=== PATIENT | female | born 1935 | race Caucasian/White ===

== ENCOUNTER 2018-11-24 19:59 | Inpatient (IN) | payer MEDICAID, OTHER ==
[~2018-11-24] VITALS: Ht 152.4 cm; Wt 90.0 kg
[~2018-11-24 19:59] MED LIST: ASPI-817 PO; DILT240C85 PO; FURO20TA3 PO; LEVO750T8 PO; METF-849 PO; RIVA10TA PO
--- NOTE | 2018-11-24 21:18 | ERD ---
ER Documentation Chief Complaint Chief Complaint SOB, CHEST PAIN AND AFIB JUST DISCHARGED 2 DAYS AGO FROM [facility] HPI 83-year-old female history of cardiac issues with unclear etiology. Unknown medications patient is unable to tell us which medication she takes. Patient is endorsing shortness of breath and bilateral lower extremity edema. Denies any chest pain, abdominal pain, nausea or vomiting. Denies any infectious symptoms. Per grandson patient was recently admitted at outside hospital multiple times once for hypervolemia and once for an infection. ROS All systems reviewed and are negative except as per history of present illness. PMhx/Soc Medical and Surgical Hx: pt denies Surgical Hx Hx Cardiac Disorders: Yes Physical Exam Vitals Vital Signs Date Temp Pulse Resp B/P (MAP) Pulse Ox O2 O2 Flow FiO2 Time Delivery Rate 11/24/18 98.5 120 22 125/77 95 Room Air 20:50 (93) 11/24/18 98.5 76 22 125/77 95 20:03 (93) Physical Exam Const: No acute distress Head: Atraumatic Eyes: Normal Conjunctiva ENT: Normal External Ears, Nose and Mouth. Neck: Full range of motion. No meningismus. Resp: Clear to auscultation bilaterally Cardio: Irregular rate and rhythm, no murmurs Abd: Soft, non tender, non distended. Normal bowel sounds Skin: No petechiae or rashes Back: No midline or flank tenderness Ext: No cyanosis, or bilateral lower extremity edema Neur: Awake and alert Psych: Normal Mood and Affect Result Diagram: 11/24/18210911/24/182109 Results 24 hrs Laboratory Tests Test 11/24/18 21:10 11/24/18 23:15 White Blood Count 18.3 10^3/ul Red Blood Count 4.25 10^6/ul Hemoglobin 12.1 g/dl Hematocrit 38.2 % Mean Corpuscular Volume 89.9 fl Mean Corpuscular Hemoglobin 28.5 pg Mean Corpuscular Hemoglobin Concent 31.7 g/dl Red Cell Distribution Width 16.0 % Platelet Count 155 10^3/UL Mean Platelet Volume 11.3 fl Immature Granulocytes % 6.700 % Neutrophils % % Segmented Neutrophils % (Manual) 92 % Lymphocytes % % Lymphocytes % (Manual) 3 % Monocytes % % Monocytes % (Manual) 3 % Eosinophils % % Basophils % % Metamyelocytes % (manual) 2 % Nucleated Red Blood Cells % 0.1 /100WBC Immature Granulocytes # 1.230 10^3/ul Neutrophils # 10^3/ul Lymphocytes (Manual) 0.5 10^3/ul Lymphocytes # 10^3/ul Monocytes # 10^3/ul Monocytes # (Manual) 0.5 10^3/ul Eosinophils # 10^3/ul Basophils # 10^3/ul Metamyelocytes # 0.3 10^3/ul Nucleated Red Blood Cells # 10^3/ul Platelet Estimate NORMAL Sodium Level 141 mmol/L Potassium Level 4.1 mmol/L Chloride Level 106 mmol/L Carbon Dioxide Level 25 mmol/L Anion Gap 10 Blood Urea Nitrogen 56 mg/dl Creatinine 1.57 mg/dl Est Glomerular Filtrat Rate mL/min mL/min Glucose Level 427 mg/dl Bedside Glucose 383 mg/dL Calcium Level 10.9 mg/dl Troponin I 0.063 ng/ml B-Type Natriuretic Peptide 8710 PG/ML Bedside Urine pH (LAB) 5.0 Bedside Urine Protein (LAB) Negative Bedside Urine Glucose (UA) 0.50% Bedside Urine Ketones (LAB) Negative Bedside Urine Blood 1+ Bedside Urine Nitrite (LAB) Negative Bedside Urine Leukocyte Esterase (L 1+ Current Medications Medications Dose Sig/Gail Start Time Status Last (Trade) Ordered Route PRN Stop Time Admin Dose Reason Admin Ceftriaxone 1 gm ONCE ONCE 11/24/18 DC Sodium IM 23:30 11/24/18 (Rocephin) 23:31 Procedures/MDM ECG Time: 2006 Ventricular Rate: 130 Rhythm: atrial fibrillation no ST elevations QRS narrow Patient presenting with worsening shortness of breath over the past few weeks with constellation of symptoms concerning for possible CHF exacerbation. Patient not overtly hypoxic with minimal respiratory distress No overt evidence of acute ischemia on EKG patient is in A. fib heart rate 1 10- 1 20 We will give IV Lasix pressure stable Trend troponin although low suspicion for acute ischemia given history and exam Low suspicion for acute PE given exam and history. Given decline in functional status, consider admission for diuresis and further cardiac evaluation MARCO A KEANE MD Nov 24, 2018 21:18
[2018-11-24] MEDS ORDERED: CEFTRIAXONE 1 GM INJ IM ONE (23:30)
[2018-11-25] VITALS (7 sets, daily range): BP systolic 107–142; BP diastolic 58–72; PULSE 88–99; RESP 17–20; Ht 152.4 cm; Wt 90.0 kg
[2018-11-25] MEDS ORDERED: FUROSEMIDE 40 MG INJ IV ONE (00:30)
[2018-11-25] MEDS ORDERED: ONDANSETRON 4 MG INJ IV PRN ×2 (01:00→04:00)
[2018-11-25] MEDS ORDERED: ACETAMINOPHEN 325 MG TAB PO PRN (04:00)
[2018-11-25] MEDS ORDERED: NACL 0.9% 3 ML SYG IV SCH (04:00)
[2018-11-25] MEDS ORDERED: INSULIN GLARGINE [LANTus] (100 UNITS/ML) SYG SC ONE (04:00)
[2018-11-25] MEDS ORDERED: NITROGLYCERIN (SL) 0.4 MG TAB SL PRN (04:00)
[2018-11-25] MEDS ORDERED: DEXTROSE 50% 50 ML SYRINGE IV PRN ×2 (04:30)
[2018-11-25] MEDS ORDERED: GLUCAGON 1 MG INJ IM PRN (04:30)
[2018-11-25] MEDS ORDERED: GLUCOSE GEL 15 GRAM TUBE PO PRN ×2 (04:30)
[2018-11-25] MEDS ORDERED: GLUCOSE GEL 15 GRAM TUBE BUCCAL PRN (04:30)
[2018-11-25] MEDS: FUROSEMIDE 20 MG TAB PO SCH ×2 (05:30→17:19)
[2018-11-25] MEDS: ACETAMINOPHEN 325 MG TAB PO PRN ×2 (05:30→20:10)
[2018-11-25] MEDS: INSULIN ASPART [NOVOLOG] 3 ML PEN SC SCH ×7 (07:49→20:10)
--- NOTE | 2018-11-25 07:49 | HP ---
Date/Time of Note Date/Time of Note DATE: 11/25/18 TIME: 07:44 Assessment/Plan VTE Prophylaxis Pharmacological prophylaxis: rivaroxaban Lines/Catheters IV Catheter Type (from Nrsg): Peripheral IV Assessment/Plan Assessment/Plan 1. Atrial fibrillation with RVR; ?Hyperthyroidism -Continue home diltiazem -Add medication including IV meds as needed -Continue Xarelto -2D echo cardiology consult -TSH low, f/u freeT4 2. Type 2 diabetes with hyperglycemia: No DKA -Insulin while in-house -Check A1c 3. CHF exacerbation, either systolic or diastolic -Continue Lasix -Follow-up 2D echo result 4. SIRS with possible sepsis, possibly from lower extremity cellulitis and UTI -IV antibiotic -Follow culture results 5. Hyperthyroidism -TSH low, f/u freeT4 6. Presumed acute on CKD -Urine electrolytes -Renal ultrasound and nephrology consult as needed Result Diagram: 11/25/1822811/25/189 Results 24hrs Laboratory Tests Test 11/24/18 21:10 11/24/18 23:15 11/25/18 02:29 11/25/18 02:35 White Blood Count 18.3 H 16.1 H Red Blood Count 4.25 4.22 Hemoglobin 12.1 12.1 Hematocrit 38.2 37.5 Mean Corpuscular Volume 89.9 88.9 Mean Corpuscular 28.5 L 28.7 L Hemoglobin Mean Corpuscular 31.7 L 32.3 Hemoglobin Concent Red Cell Distribution 16.0 H 15.9 H Width Platelet Count 155 151 Mean Platelet Volume 11.3 H 11.8 H Immature Granulocytes % 6.700 H 7.600 H Neutrophils % Segmented Neutrophils 92 H % (Manual) Lymphocytes % Lymphocytes % (Manual) 3 L Monocytes % Monocytes % (Manual) 3 Eosinophils % Basophils % Metamyelocytes % 2 H (manual) Nucleated Red Blood 0.1 H 0.0 Cells % Immature Granulocytes # 1.230 H 1.220 H Neutrophils # Lymphocytes (Manual) 0.5 L Lymphocytes # Monocytes # Monocytes # (Manual) 0.5 Eosinophils # Basophils # Metamyelocytes # 0.3 H Nucleated Red Blood Cells # Platelet Estimate NORMAL Sodium Level 141 141 Potassium Level 4.1 3.8 Chloride Level 106 106 Carbon Dioxide Level 25 26 Anion Gap 10 9 Blood Urea Nitrogen 56 H 54 H Creatinine 1.57 H 1.41 H Est Glomerular Filtrat Rate mL/min Glucose Level 427 *H 391 H Bedside Glucose 383 H Calcium Level 10.9 H 11.2 H Troponin I 0.063 0.072 B-Type Natriuretic 8710 H Peptide Bedside Urine pH (LAB) 5.0 Bedside Urine Protein Negative (LAB) Bedside Urine Glucose 0.50% H (UA) Bedside Urine Ketones Negative (LAB) Bedside Urine Blood 1+ H Bedside Urine Nitrite Negative (LAB) Bedside Urine 1+ H Leukocyte Esterase (L Magnesium Level 1.7 Total Bilirubin 0.3 Direct Bilirubin 0.00 Indirect Bilirubin 0.3 Aspartate Amino 26 Transf (AST/SGOT) Alanine 55 Aminotransferase (ALT/SG PT) Alkaline Phosphatase 84 Total Protein 5.8 L Albumin 3.2 L Globulin 2.60 Albumin/Globulin Ratio 1.23 Triglycerides Level 253 H Cholesterol Level 175 LDL Cholesterol, 77 Calculated HDL Cholesterol 47 Cholesterol/HDL Ratio 3.7 Thyroid Stimulating 0.376 L Hormone (TSH) Creatine Kinase 22 L Creatine Kinase Index 16.3 Creatinine Kinase MB 3.58 H (Mass) Test 11/25/18 05:16 Urine Color COLORLESS Urine Clarity CLEAR Urine pH 5.0 Urine Specific Brandon 1.006 Urine Ketones NEGATIVE Urine Nitrite NEGATIVE Urine Bilirubin NEGATIVE Urine Urobilinogen NEGATIVE Urine Leukocyte Esterase TRACE A Urine Microscopic RBC 1 Urine Microscopic WBC 6 H Urine Hemoglobin NEGATIVE Urine Glucose 3+ H Urine Total Protein NEGATIVE HPI/ROS Admit Date/Time Admit Date/Time Nov 25, 2018 at 00:34 Hx of Present Illness Patient is an 83-year-old female with a history of type 2 diabetes, atrial fibrillation, CHF who presents the ER complaining of shortness of breath, lower extremity edema and palpitations. There is also redness in bilateral lower extremity. Patient was recently hospitalized at [facility] and there was just discharged 2 days ago per ER. It seems like she was hospitalized for chest pain. Patient was found to be in rapid A-fib. Lab shows glucose of 427, creatinine 1.57, WBC 18,000, BNP almost 9000. PMH/Family/Social Past Medical History Medical History: other (See HPI) Medications Current Medications Ondansetron HCl (Zofran Inj) 4 mg ER BRIDGE PRN IV NAUSEA/VOMITING; Start 11/25/18 at 01:00; Stop 11/26/18 at 00:59 Acetaminophen (Tylenol Tab) 650 mg ER BRIDGE PRN PO .MILD PAIN 1-3 OR TEMP Last administered on 11/25/18at 05:30; Admin Dose 650 MG; Start 11/25/18 at 01:00; Stop 11/26/18 at 00:59 IV Flush (NS 3 ml) 3 ml PER PROTOCOL IV ; Start 11/25/18 at 04:00 Ondansetron HCl (Zofran Inj) 4 mg Q6H PRN IV NAUSEA/VOMITING; Start 11/25/18 at 04:00 Nitroglycerin (Nitroglycerin (Sl Tab) 0.4 Mg) 1 tab Q5M PRN SL .CHEST PAIN; Start 11/25/18 at 04:00 Acetaminophen (Tylenol Tab) 650 mg Q6H PRN PO .PAIN 1-3 OR TEMP; Start 11/25/18 at 04:00 Diagnostic Test (Pha) (Accu-Chek) 1 ea 02 XX ; Start 11/26/18 at 02:00 Insulin Glargine (Lantus) 14 units DAILY@2000 SC ; Start 11/25/18 at 20:00 Insulin Aspart (Novolog Insulin Pen) 6 unit WITH MEALS SC ; Start 11/25/18 at 08:00 Insulin Aspart (Novolog Insulin Pen) NOVOLOG *MODERATE* ALGORITHM WITH MEALS BEDTIME SC ; Start 11/25/18 at 08:00 Aspirin (Halfprin) 81 mg DAILY PO ; Start 11/25/18 at 09:00 Diltiazem HCl (Cardizem Cd) 240 mg QAM PO ; Start 11/25/18 at 09:00 Furosemide (Lasix) 20 mg BID DIURETICS PO Last administered on 11/25/18at 05:30; Admin Dose 20 MG; Start 11/25/18 at 06:00 Metformin HCl (Glucophage) 500 mg BID PO ; Start 11/25/18 at 09:00 Rivaroxaban (Xarelto) 10 mg QAM PO ; Start 11/25/18 at 09:00 Miscellaneous Information 1 ea NOTE XX ; Start 11/25/18 at 04:30 Glucose (Glutose) 15 gm Q15M PRN PO DECREASED GLUCOSE; Start 11/25/18 at 04:30 Glucose (Glutose) 22.5 gm Q15M PRN PO DECREASED GLUCOSE; Start 11/25/18 at 04:30 Dextrose (D50w Syringe) 25 ml Q15M PRN IV DECREASED GLUCOSE; Start 11/25/18 at 04:30 Dextrose (D50w Syringe) 50 ml Q15M PRN IV DECREASED GLUCOSE; Start 11/25/18 at 04:30 Glucagon (Glucagen) 1 mg Q15M PRN IM DECREASED GLUCOSE; Start 11/25/18 at 04:30 Glucose (Glutose) 15 gm Q15M PRN BUCCAL DECREASED GLUCOSE; Start 11/25/18 at 04:30 Ceftriaxone Sodium 50 ml @ 100 mls/hr DAILY IVPB ; Start 11/25/18 at 09:00 Coded Allergies: No Known Allergy (Unverified , 11/25/18) Past Surgical History Past Surgical Hx: other (See HPI) Family History Significant Family History: no pertinent family hx Social History Alcohol Use: none Smoking Status: Never smoker Drug Use: none Exam/Review of Systems Vital Signs Vitals Vital Signs Date Temp Pulse Resp B/P (MAP) Pulse Ox O2 O2 Flow FiO2 Time Delivery Rate 11/25/18 97.6 99 18 142/66 95 07:32 (91) 11/25/18 Room Air 02:15 Intake and Output 11/24/18 11/24/18 11/25/18 1515:00 23:00 07:00 IntakeIntake Total 200 ml BalanceBalance 200 ml Exam Constitutional: other (No acute distress) Head: normocephalic, atraumatic Eyes: PERRL Respiratory: other (Decreased breath sounds at the bases) Cardiovascular: irregular rhythm, other (Tachycardic) Gastrointestinal: soft Extremities: edema SHIRIN MURRITEA MD Nov 25, 2018 07:49
[2018-11-25] MEDS: CEFTRIAXONE 1 GM/50 ML (PMX) 50 ML IVPB SCH (08:14)
[2018-11-25] MEDS: metFORMIN 500 MG TAB PO SCH ×2 (08:14→20:10)
[2018-11-25] MEDS: ASPIRIN (EC) 81 MG TAB PO SCH (08:14)
[2018-11-25] MEDS: DILTIAZEM (CD) 240 MG CAP PO SCH (08:15)
[2018-11-25] MEDS ORDERED: DILTIAZEM (CD) 240 MG CAP PO SCH (09:00)
[2018-11-25] MEDS ORDERED: RIVAROXABAN 10 MG TABLET PO SCH (09:00)
[2018-11-25] MEDS ORDERED: INSULIN ASPART [NOVOLOG] 3 ML PEN SC SCH (12:00)
--- NOTE | 2018-11-25 13:00 | RADRPT ---
Echocardiogram Report Patient Name: Esperanza KHAN ID: [id number] : 1935 (83y 8m)Study Date: 11/25/2018 10:22:38 AM Gender: FAccession #: [id number] [place]: [facility] [place] Location[place] [facility] Ref.Physician: SHIRIN MURRIETA Height(Cm): 152 BSA: 1.71Weight(Kg): 68.9 Quality: Technically Difficult StudyOrder Physician: SHIRIN MURRIETA Account #: Procedures: Echocardiographic Report: Transthoracic echocardiogram with 2D, M-Mode, and doppler examination. Indications: Atrial Fibrillation, and Congestive Heart Failure. Measurements: 2D/M Mode Doppler Measurement Value Normal Range Measurement Value Normal Range LA Volume 105.0 [ 22.0 - 52.0 ] ml AV Peak Leandro 1.7 [ 100.0 - 170.0 ] c m/sec LA Volume Index 63 [ 16 - 34 ] ml/m2 AV Peak PG 12.0 [ 2.0 - 9.0 ] mmHg LVIDd 2D 3.4 [ 3.8 - 5.2 ] cm LVOT Peak Leandro 1.3 [ 70.0 - 110.0 ] cm /sec LVIDs 2D 2.7 [ 2.2 - 3.5 ] cm LVOT Peak PG 7.0 [ 2.0 - 6.0 ] mmHg LVPWd 2D 1.2 [ 0.6 - 0.9 ] cm MV E Peak Leandro 1.0 [ 60.0 - 130.0 ] cm /sec IVSd 2D 1.5 [ 0.6 - 0.9 ] cm MV PHT 210.0 [ 20.0 - 100.0 ] ms ec AoR Diam 2D 3.4 [ 2.3 - 3.1 ] cm MV Decel Time 718 [ 104 - 258 ] msec EDV 2D 48.8 [ 46.0 - 106.0 ] ml MV Decel Schoolcraft 1 ESV 2D 27.8 [ 14.0 - 42.0 ] ml Lat E` Leandro 0.1 [ 10.0 - 15.0 ] cm/ sec EF 2D 43.0 [ 54.0 - 74.0 ] percent Lateral E/E` 15.2 [ 1.0 - 2.0 ] ratio LA Dimen 2D 4.4 [ 2.7 - 3.8 ] cm MVA PHT 1.0 [ 2.0 - 4.0 ] cm2 TR Peak Leandro 2.5 [ 100.0 - 280.0 ] c m/sec TR Peak PG 24.0 mmHg PV Peak Leandro 1.3 [ 40.0 - 80.0 ] cm/ sec PV Peak PG 7.0 mmHg RVSP 27.0 [ 10.0 - 36.0 ] mmH g RA Pressure 3.0 mmHg Findings: Left Ventricle: Overall, normal left ventricular systolic function. Not all segments visualized and patient in abnormal rhythm throughout exam. Mild to moderate concentric left ventricular hypertrophy. Reduced left ventricular cavity size. Abnormal Diastolic Function. Right Ventricle: Normal right ventricular size. Left Atrium: There is severe enlargement of left atrium appreciated best by SANTOSH of 66 ml/m2. Right Atrium: The right atrium is normal in size. Atrial Septum: Not well visualized. Mitral Valve: Mild mitral annular calcification. Mild mitral valve regurgitation. Aortic Valve: No hemodynamically significant aortic stenosis by doppler. Aortic cusps appear mildly calcified. Trace to mild aortic valve regurgitation. Tricuspid Valve: Normal appearance of the tricuspid valve. The estimated Peak RVSP is 27 mmHg. There is trace tricuspid regurgitation. Pulmonic Valve: Normal pulmonic valve appearance. There is trace pulmonic regurgitation. Pericardium: Trivial pericardial effusion. Aorta: Sinus of valsalva is mildly dilated. Sinus of valsalva 3.40 cm. Ascending aorta is mildly dilated. Ascending Aorta 3.90 cm. IVC: Normal size and normal respiratory collapse consistent with normal right atrial pressure. Pulmonary Artery: Normal pulmonary artery size. Conclusions: Overall, normal left ventricular systolic function. Not all segments visualized and patient in abnormal rhythm throughout exam. Mild to moderate concentric left ventricular hypertrophy. Reduced left ventricular cavity size. Abnormal Diastolic Function. There is severe enlargement of left atrium appreciated best by SANTOSH of 66 ml/m2. Mild mitral annular calcification. Mild mitral valve regurgitation. Normal pulmonic valve appearance. There is trace pulmonic regurgitation. n. Normal appearance of the tricuspid valve. The estimated Peak RVSP is 27 mmHg. There is trace tricuspid regurgitation. No hemodynamically significant aortic stenosis by doppler. Aortic cusps appear mildly calcified. Trace to mild aortic valve regurgitation. Trivial pericardial effusion. Electronically Signed By: Marley Alvarez 2018-11-25 12:59:33 PDT
--- NOTE | 2018-11-25 14:12 | CONS ---
Assessment/Plan Assessment/Plan Assessment/Plan (Daily) Afib Mild CHF exacerbation - Normal EF by echo SIRS -continue rate control -on xarelto - increase to 15mg dialy (creat 1.4-1.5) crcl 106 -possible change to po lasix in the am Consultation Date/Type/Reason Admit Date/Time Nov 25, 2018 at 00:34 Type of Consult Cardiology Date/Time of Note DATE: 11/25/18 TIME: 14:09 Hx of Present Illness Patient is an 83-year-old female with a history of type 2 diabetes, atrial fibrillation, CHF who presents the ER complaining of shortness of breath, lower extremity edema and palpitations. There is also redness in bilateral lower extremity. Patient was recently hospitalized at [facility] and there was just discharged 2 days ago per ER. It seems like she was hospitalized for chest pain. Patient was found to be in rapid A-fib. Lab shows glucose of 427, creatinine 1.57, WBC 18,000, BNP almost 9000. Past Medical History Home Meds Reported Medications Furosemide* (Furosemide*) 20 Mg Tablet, 20 MG PO BID, #30 TAB 11/25/18 Diltiazem Hcl (DILTIAZEM 24HR CD) 240 Mg Cap.er.24h, 240 MG PO QAM for 30 Days, #30 11/25/18 Rivaroxaban* (Xarelto*) 10 Mg Tablet, 10 MG PO QAM for 30 Days, #30 11/25/18 Aspirin* (Aspirin* EC) 81 Mg Tablet.dr, 81 MG PO DAILY for 30 Days, #30 11/25/18 Metformin* (Glucophage*) 500 Mg Tab, 500 MG PO BID for 30 Days, #60 11/25/18 Medications Current Medications Ondansetron HCl (Zofran Inj) 4 mg ER BRIDGE PRN IV NAUSEA/VOMITING; Start 11/25/18 at 01:00; Stop 11/26/18 at 00:59 Acetaminophen (Tylenol Tab) 650 mg ER BRIDGE PRN PO .MILD PAIN 1-3 OR TEMP Last administered on 11/25/18at 05:30; Admin Dose 650 MG; Start 11/25/18 at 01:00; Stop 11/26/18 at 00:59 IV Flush (NS 3 ml) 3 ml PER PROTOCOL IV ; Start 11/25/18 at 04:00 Ondansetron HCl (Zofran Inj) 4 mg Q6H PRN IV NAUSEA/VOMITING; Start 11/25/18 at 04:00 Nitroglycerin (Nitroglycerin (Sl Tab) 0.4 Mg) 1 tab Q5M PRN SL .CHEST PAIN; Start 11/25/18 at 04:00 Acetaminophen (Tylenol Tab) 650 mg Q6H PRN PO .PAIN 1-3 OR TEMP; Start 11/25/18 at 04:00 Diagnostic Test (Pha) (Accu-Chek) 1 ea 02 XX ; Start 11/26/18 at 02:00 Insulin Glargine (Lantus) 14 units DAILY@2000 SC ; Start 11/25/18 at 20:00 Insulin Aspart (Novolog Insulin Pen) 6 unit WITH MEALS SC Last administered on 11/25/18at 12:04; Admin Dose 6 UNIT; Start 11/25/18 at 08:00 Insulin Aspart (Novolog Insulin Pen) NOVOLOG *MODERATE* ALGORITHM WITH MEALS BEDTIME SC Last administered on 11/25/18at 12:03; Admin Dose 4 UNIT; Start 11/25/18 at 08:00 Aspirin (Halfprin) 81 mg DAILY PO Last administered on 11/25/18at 08:14; Admin Dose 81 MG; Start 11/25/18 at 09:00 Furosemide (Lasix) 20 mg BID DIURETICS PO Last administered on 11/25/18at 05:30; Admin Dose 20 MG; Start 11/25/18 at 06:00 Metformin HCl (Glucophage) 500 mg BID PO Last administered on 11/25/18at 08:14; Admin Dose 500 MG; Start 11/25/18 at 09:00 Rivaroxaban (Xarelto) 10 mg QAM PO Last administered on 11/25/18at 08:14; Admin Dose 10 MG; Start 11/25/18 at 09:00 Miscellaneous Information 1 ea NOTE XX ; Start 11/25/18 at 04:30 Glucose (Glutose) 15 gm Q15M PRN PO DECREASED GLUCOSE; Start 11/25/18 at 04:30 Glucose (Glutose) 22.5 gm Q15M PRN PO DECREASED GLUCOSE; Start 11/25/18 at 04:30 Dextrose (D50w Syringe) 25 ml Q15M PRN IV DECREASED GLUCOSE; Start 11/25/18 at 04:30 Dextrose (D50w Syringe) 50 ml Q15M PRN IV DECREASED GLUCOSE; Start 11/25/18 at 04:30 Glucagon (Glucagen) 1 mg Q15M PRN IM DECREASED GLUCOSE; Start 11/25/18 at 04:30 Glucose (Glutose) 15 gm Q15M PRN BUCCAL DECREASED GLUCOSE; Start 11/25/18 at 04:30 Ceftriaxone Sodium 50 ml @ 100 mls/hr DAILY IVPB Last administered on 11/25/18at 08:14; Admin Dose 100 MLS/HR; Start 11/25/18 at 09:00 Diltiazem HCl (Cardizem Cd) 240 mg QAM PO Last administered on 11/25/18at 08:15; Admin Dose 240 MG; Start 11/25/18 at 08:00 Allergies: Coded Allergies: No Known Allergy (Unverified , 11/25/18) Past Surgical History Past Surgical Hx: other (See HPI) Social History Alcohol Use: none Smoking Status: Never smoker Drug Use: none Exam/Review of Systems Vital Signs Vitals Vital Signs Date Temp Pulse Resp B/P (MAP) Pulse Ox O2 O2 Flow FiO2 Time Delivery Rate 11/25/18 97.5 90 18 107/70 98 Nasal 12:05 (82) Cannula Intake and Output 11/24/18 11/24/18 11/25/18 1515:00 23:00 07:00 IntakeIntake Total 200 ml BalanceBalance 200 ml Labs Result Diagram: 11/25/1822811/25/18228 Results 24hrs Laboratory Tests Test 11/24/18 21:10 11/24/18 23:15 11/25/18 00:01 11/25/18 02:29 White Blood Count 18.3 H 16.1 H Red Blood Count 4.25 4.22 Hemoglobin 12.1 12.1 Hematocrit 38.2 37.5 Mean Corpuscular Volume 89.9 88.9 Mean Corpuscular 28.5 L 28.7 L Hemoglobin Mean Corpuscular 31.7 L 32.3 Hemoglobin Concent Red Cell Distribution 16.0 H 15.9 H Width Platelet Count 155 151 Mean Platelet Volume 11.3 H 11.8 H Immature Granulocytes % 6.700 H 7.600 H Neutrophils % Segmented Neutrophils 92 H 84 H % (Manual) Lymphocytes % Lymphocytes % (Manual) 3 L 4 L Monocytes % Monocytes % (Manual) 3 4 Eosinophils % Basophils % Metamyelocytes % 2 H 1 H (manual) Nucleated Red Blood 0.1 H 1 H Cells % Immature Granulocytes # 1.230 H 1.220 H Neutrophils # Lymphocytes (Manual) 0.5 L 0.6 L Lymphocytes # Monocytes # Monocytes # (Manual) 0.5 0.6 Eosinophils # Basophils # Metamyelocytes # 0.3 H 0.1 H Nucleated Red Blood Cells # Platelet Estimate NORMAL NORMAL Sodium Level 141 141 Potassium Level 4.1 3.8 Chloride Level 106 106 Carbon Dioxide Level 25 26 Anion Gap 10 9 Blood Urea Nitrogen 56 H 54 H Creatinine 1.57 H 1.41 H Est Glomerular Filtrat Rate mL/min Glucose Level 427 *H 391 H Bedside Glucose 383 H Calcium Level 10.9 H 11.2 H Troponin I 0.063 B-Type Natriuretic 8710 H Peptide Bedside Urine pH (LAB) 5.0 Bedside Urine Protein Negative (LAB) Bedside Urine Glucose 0.50% H (UA) Bedside Urine Ketones Negative (LAB) Bedside Urine Blood 1+ H Bedside Urine Nitrite Negative (LAB) Bedside Urine 1+ H Leukocyte Esterase (L Urine Random Sodium 72 Urine Random Potassium 20.8 L Band Neutrophils % 5 H (Manual) Myelocytes % (Manual) 2 H Neutrophils # (Manual) 13.7 H Band Neutrophils # 0.8 H Myelocytes # 0.3 H Polychromasia 3+ Poikilocytosis 1+ Anisocytosis 1+ Microcytosis 1+ Hemoglobin A1c 10.4 H Magnesium Level 1.7 Total Bilirubin 0.3 Direct Bilirubin 0.00 Indirect Bilirubin 0.3 Aspartate Amino 26 Transf (AST/SGOT) Alanine 55 Aminotransferase (ALT/SG PT) Alkaline Phosphatase 84 Total Protein 5.8 L Albumin 3.2 L Globulin 2.60 Albumin/Globulin Ratio 1.23 Triglycerides Level 253 H Cholesterol Level 175 LDL Cholesterol, 77 Calculated HDL Cholesterol 47 Cholesterol/HDL Ratio 3.7 Thyroid Stimulating 0.376 L Hormone (TSH) Test 11/25/18 02:35 11/25/18 05:16 11/25/18 07:45 11/25/18 08:49 Creatine Kinase 22 L < 20 L Creatine Kinase Index 16.3 Creatinine Kinase MB 3.58 H 2.98 H (Mass) Troponin I 0.072 0.064 Urine Color COLORLESS Urine Clarity CLEAR Urine pH 5.0 Urine Specific [place] 1.006 Urine Ketones NEGATIVE Urine Nitrite NEGATIVE Urine Bilirubin NEGATIVE Urine Urobilinogen NEGATIVE Urine Leukocyte Esterase TRACE A Urine Microscopic RBC 1 Urine Microscopic WBC 6 H Urine Hemoglobin NEGATIVE Urine Glucose 3+ H Urine Total Protein NEGATIVE Bedside Glucose 306 H Free Thyroxine 1.50 Test 11/25/18 11:57 Bedside Glucose 189 Medications Medications Current Medications Ondansetron HCl (Zofran Inj) 4 mg ER BRIDGE PRN IV NAUSEA/VOMITING; Start 11/25/18 at 01:00; Stop 11/26/18 at 00:59 Acetaminophen (Tylenol Tab) 650 mg ER BRIDGE PRN PO .MILD PAIN 1-3 OR TEMP Last administered on 11/25/18at 05:30; Admin Dose 650 MG; Start 11/25/18 at 01:00; Stop 11/26/18 at 00:59 IV Flush (NS 3 ml) 3 ml PER PROTOCOL IV ; Start 11/25/18 at 04:00 Ondansetron HCl (Zofran Inj) 4 mg Q6H PRN IV NAUSEA/VOMITING; Start 11/25/18 at 04:00 Nitroglycerin (Nitroglycerin (Sl Tab) 0.4 Mg) 1 tab Q5M PRN SL .CHEST PAIN; S tart 11/25/18 at 04:00 Acetaminophen (Tylenol Tab) 650 mg Q6H PRN PO .PAIN 1-3 OR TEMP; Start 11/25/18 at 04:00 Diagnostic Test (Pha) (Accu-Chek) 1 ea 02 XX ; Start 11/26/18 at 02:00 Insulin Glargine (Lantus) 14 units DAILY@2000 SC ; Start 11/25/18 at 20:00 Insulin Aspart (Novolog Insulin Pen) 6 unit WITH MEALS SC Last administered on 11/25/18at 12:04; Admin Dose 6 UNIT; Start 11/25/18 at 08:00 Insulin Aspart (Novolog Insulin Pen) NOVOLOG *MODERATE* ALGORITHM WITH MEALS BEDTIME SC Last administered on 11/25/18at 12:03; Admin Dose 4 UNIT; Start 11/25/18 at 08:00 Aspirin (Halfprin) 81 mg DAILY PO Last administered on 11/25/18at 08:14; Admin Dose 81 MG; Start 11/25/18 at 09:00 Furosemide (Lasix) 20 mg BID DIURETICS PO Last administered on 11/25/18at 05:30; Admin Dose 20 MG; Start 11/25/18 at 06:00 Metformin HCl (Glucophage) 500 mg BID PO Last administered on 11/25/18at 08:14; Admin Dose 500 MG; Start 11/25/18 at 09:00 Rivaroxaban (Xarelto) 10 mg QAM PO Last administered on 11/25/18at 08:14; Admin Dose 10 MG; Start 11/25/18 at 09:00 Miscellaneous Information 1 ea NOTE XX ; Start 11/25/18 at 04:30 Glucose (Glutose) 15 gm Q15M PRN PO DECREASED GLUCOSE; Start 11/25/18 at 04:30 Glucose (Glutose) 22.5 gm Q15M PRN PO DECREASED GLUCOSE; Start 11/25/18 at 04:30 Dextrose (D50w Syringe) 25 ml Q15M PRN IV DECREASED GLUCOSE; Start 11/25/18 at 04:30 Dextrose (D50w Syringe) 50 ml Q15M PRN IV DECREASED GLUCOSE; Start 11/25/18 at 04:30 Glucagon (Glucagen) 1 mg Q15M PRN IM DECREASED GLUCOSE; Start 11/25/18 at 04:30 Glucose (Glutose) 15 gm Q15M PRN BUCCAL DECREASED GLUCOSE; Start 11/25/18 at 04:30 Ceftriaxone Sodium 50 ml @ 100 mls/hr DAILY IVPB Last administered on 11/25/18at 08:14; Admin Dose 100 MLS/HR; Start 11/25/18 at 09:00 Diltiazem HCl (Cardizem Cd) 240 mg QAM PO Last administered on 11/25/18at 08:15; Admin Dose 240 MG; Start 11/25/18 at 08:00 ROOSEVELT RICKETTS MD Nov 25, 2018 14:12
--- NOTE | 2018-11-25 16:00 | PN ---
Date/Time of Note Date/Time of Note DATE: 11/25/18 TIME: 15:52 Assessment/Plan VTE Prophylaxis Risk score (from Nsg)>0 risk: 6 SCD applied (from Nsg): No SCD contraindicated: other (no) Pharmacological prophylaxis: rivaroxaban Lines/Catheters IV Catheter Type (from Nrsg): Peripheral IV Assessment/Plan Assessment/Plan 83 yo woman with CHF and A fib presents in exacerbation with RVR. 1. Atrial fibrillation with RVR; ?Hyperthyroidism -Continue home diltiazem -Continue Xarelto -TSH low, FT4 normal. Subclinical hyperthyroid. 2. Type 2 diabetes with hyperglycemia: No DKA -Insulin while in-house -Check A1c 3. CHF exacerbation, either systolic or diastolic -Continue Lasix -Follow-up 2D echo result 4. SIRS with possible sepsis, possibly from lower extremity cellulitis and UTI -IV antibiotic -Follow culture results 5. Presumed acute on CKD -Urine electrolytes -Renal ultrasound and nephrology consult as needed Dispo: Anticipate discharge home in 34-48 hours. Result Diagram: 11/25/1822811/25/18228 Subjective 24 Hr Interval Summary Free Text/Dictation No acute overnight events. Patient appears to be back near baseline. She is off oxygen breathing comfortably on room air. She flies frequently back and forth from [facility]. She wants medical clearance to fly back on December 01. Granddaughter Rachel was at the bedside to help translate. Exam/Review of Systems Exam Vitals Vital Signs Date Temp Pulse Resp B/P (MAP) Pulse Ox O2 O2 Flow FiO2 Time Delivery Rate 11/25/18 97.8 95 18 108/58 100 Nasal 15:48 (75) Cannula Intake and Output 11/24/18 11/24/18 11/25/18 1515:00 23:00 07:00 IntakeIntake Total 200 ml BalanceBalance 200 ml Exam Constitutional: Obese elderly woman sitting up in chair in no distress. Head: normocephalic, atraumatic Eyes: PERRL Respiratory: other (Decreased breath sounds at the bases) Cardiovascular: irregular rhythm, normal rate, no murmurs. Gastrointestinal: soft Extremities: Mild edema. Skin: desquamating rash throughout with chronic venous stasis changes of the legs. Had recent L upper arm excisional biopsy, the site is clean appearing. Results Results 24hrs Laboratory Tests Test 11/24/18 21:10 11/24/18 23:15 11/25/18 00:01 11/25/18 02:29 White Blood Count 18.3 H 16.1 H Red Blood Count 4.25 4.22 Hemoglobin 12.1 12.1 Hematocrit 38.2 37.5 Mean Corpuscular Volume 89.9 88.9 Mean Corpuscular 28.5 L 28.7 L Hemoglobin Mean Corpuscular 31.7 L 32.3 Hemoglobin Concent Red Cell Distribution 16.0 H 15.9 H Width Platelet Count 155 151 Mean Platelet Volume 11.3 H 11.8 H Immature Granulocytes % 6.700 H 7.600 H Neutrophils % Segmented Neutrophils 92 H 84 H % (Manual) Lymphocytes % Lymphocytes % (Manual) 3 L 4 L Monocytes % Monocytes % (Manual) 3 4 Eosinophils % Basophils % Metamyelocytes % 2 H 1 H (manual) Nucleated Red Blood 0.1 H 1 H Cells % Immature Granulocytes # 1.230 H 1.220 H Neutrophils # Lymphocytes (Manual) 0.5 L 0.6 L Lymphocytes # Monocytes # Monocytes # (Manual) 0.5 0.6 Eosinophils # Basophils # Metamyelocytes # 0.3 H 0.1 H Nucleated Red Blood Cells # Platelet Estimate NORMAL NORMAL Sodium Level 141 141 Potassium Level 4.1 3.8 Chloride Level 106 106 Carbon Dioxide Level 25 26 Anion Gap 10 9 Blood Urea Nitrogen 56 H 54 H Creatinine 1.57 H 1.41 H Est Glomerular Filtrat Rate mL/min Glucose Level 427 *H 391 H Bedside Glucose 383 H Calcium Level 10.9 H 11.2 H Troponin I 0.063 B-Type Natriuretic 8710 H Peptide Bedside Urine pH (LAB) 5.0 Bedside Urine Protein Negative (LAB) Bedside Urine Glucose 0.50% H (UA) Bedside Urine Ketones Negative (LAB) Bedside Urine Blood 1+ H Bedside Urine Nitrite Negative (LAB) Bedside Urine 1+ H Leukocyte Esterase (L Urine Random Sodium 72 Urine Random Potassium 20.8 L Band Neutrophils % 5 H (Manual) Myelocytes % (Manual) 2 H Neutrophils # (Manual) 13.7 H Band Neutrophils # 0.8 H Myelocytes # 0.3 H Polychromasia 3+ Poikilocytosis 1+ Anisocytosis 1+ Microcytosis 1+ Hemoglobin A1c 10.4 H Magnesium Level 1.7 Total Bilirubin 0.3 Direct Bilirubin 0.00 Indirect Bilirubin 0.3 Aspartate Amino 26 Transf (AST/SGOT) Alanine 55 Aminotransferase (ALT/SG PT) Alkaline Phosphatase 84 Total Protein 5.8 L Albumin 3.2 L Globulin 2.60 Albumin/Globulin Ratio 1.23 Triglycerides Level 253 H Cholesterol Level 175 LDL Cholesterol, 77 Calculated HDL Cholesterol 47 Cholesterol/HDL Ratio 3.7 Thyroid Stimulating 0.376 L Hormone (TSH) Test 11/25/18 02:35 11/25/18 05:16 11/25/18 07:45 11/25/18 08:49 Creatine Kinase 22 L < 20 L Creatine Kinase Index 16.3 Creatinine Kinase MB 3.58 H 2.98 H (Mass) Troponin I 0.072 0.064 Urine Color COLORLESS Urine Clarity CLEAR Urine pH 5.0 Urine Specific [place] 1.006 Urine Ketones NEGATIVE Urine Nitrite NEGATIVE Urine Bilirubin NEGATIVE Urine Urobilinogen NEGATIVE Urine Leukocyte Esterase TRACE A Urine Microscopic RBC 1 Urine Microscopic WBC 6 H Urine Hemoglobin NEGATIVE Urine Glucose 3+ H Urine Total Protein NEGATIVE Bedside Glucose 306 H Free Thyroxine 1.50 Test 11/25/18 11:57 Bedside Glucose 189 Medications Medication Current Medications Ondansetron HCl (Zofran Inj) 4 mg ER BRIDGE PRN IV NAUSEA/VOMITING; Start 11/25/18 at 01:00; Stop 11/26/18 at 00:59 Acetaminophen (Tylenol Tab) 650 mg ER BRIDGE PRN PO .MILD PAIN 1-3 OR TEMP Last administered on 11/25/18at 05:30; Admin Dose 650 MG; Start 11/25/18 at 01:00; Stop 11/26/18 at 00:59 IV Flush (NS 3 ml) 3 ml PER PROTOCOL IV ; Start 11/25/18 at 04:00 Ondansetron HCl (Zofran Inj) 4 mg Q6H PRN IV NAUSEA/VOMITING; Start 11/25/18 at 04:00 Nitroglycerin (Nitroglycerin (Sl Tab) 0.4 Mg) 1 tab Q5M PRN SL .CHEST PAIN; Start 11/25/18 at 04:00 Acetaminophen (Tylenol Tab) 650 mg Q6H PRN PO .PAIN 1-3 OR TEMP; Start 11/25/18 at 04:00 Diagnostic Test (Pha) (Accu-Chek) 1 ea 02 XX ; Start 11/26/18 at 02:00 Insulin Glargine (Lantus) 14 units DAILY@2000 SC ; Start 11/25/18 at 20:00 Insulin Aspart (Novolog Insulin Pen) 6 unit WITH MEALS SC Last administered on 11/25/18at 12:04; Admin Dose 6 UNIT; Start 11/25/18 at 08:00 Insulin Aspart (Novolog Insulin Pen) NOVOLOG *MODERATE* ALGORITHM WITH MEALS BEDTIME SC Last administered on 11/25/18at 12:03; Admin Dose 4 UNIT; Start 11/25/18 at 08:00 Aspirin (Halfprin) 81 mg DAILY PO Last administered on 11/25/18at 08:14; Admin Dose 81 MG; Start 11/25/18 at 09:00 Furosemide (Lasix) 20 mg BID DIURETICS PO Last administered on 11/25/18at 05:30; Admin Dose 20 MG; Start 11/25/18 at 06:00 Metformin HCl (Glucophage) 500 mg BID PO Last administered on 11/25/18at 08:14; Admin Dose 500 MG; Start 11/25/18 at 09:00 Miscellaneous Information 1 ea NOTE XX ; Start 11/25/18 at 04:30 Glucose (Glutose) 15 gm Q15M PRN PO DECREASED GLUCOSE; Start 11/25/18 at 04:30 Glucose (Glutose) 22.5 gm Q15M PRN PO DECREASED GLUCOSE; Start 11/25/18 at 04:30 Dextrose (D50w Syringe) 25 ml Q15M PRN IV DECREASED GLUCOSE; Start 11/25/18 at 04:30 Dextrose (D50w Syringe) 50 ml Q15M PRN IV DECREASED GLUCOSE; Start 11/25/18 at 04:30 Glucagon (Glucagen) 1 mg Q15M PRN IM DECREASED GLUCOSE; Start 11/25/18 at 04:30 Glucose (Glutose) 15 gm Q15M PRN BUCCAL DECREASED GLUCOSE; Start 11/25/18 at 04:30 Ceftriaxone Sodium 50 ml @ 100 mls/hr DAILY IVPB Last administered on 11/25/18at 08:14; Admin Dose 100 MLS/HR; Start 11/25/18 at 09:00 Diltiazem HCl (Cardizem Cd) 240 mg QAM PO Last administered on 11/25/18at 08:15; Admin Dose 240 MG; Start 11/25/18 at 08:00 Rivaroxaban (Xarelto) 20 mg QAM PO ; Start 11/26/18 at 09:00 NILAM POST MD Nov 25, 2018 16:00
[2018-11-25] MEDS: RIVAROXABAN 15 MG TABLET PO SCH (17:19)
[2018-11-25] MEDS: INSULIN GLARGINE [LANTus] (100 UNITS/ML) SYG SC SCH (20:26)
[2018-11-26] MEDS: ACCU-CHEK XX SCH (02:21)
[2018-11-26 03:57] VITALS: BP 131/69; PULSE 112; RESP 21
[2018-11-26] MEDS: FUROSEMIDE 20 MG TAB PO SCH ×2 (05:00→17:07)
[2018-11-26 07:25] VITALS: BP 144/65; PULSE 80; RESP 19
[2018-11-26] MEDS: metFORMIN 500 MG TAB PO SCH ×2 (07:30→20:05)
[2018-11-26] MEDS: INSULIN ASPART [NOVOLOG] 3 ML PEN SC SCH ×7 (07:30→20:10)
[2018-11-26] MEDS: ASPIRIN (EC) 81 MG TAB PO SCH (08:23)
[2018-11-26] MEDS: DILTIAZEM (CD) 240 MG CAP PO SCH (08:23)
[2018-11-26] MEDS: CEFTRIAXONE 1 GM/50 ML (PMX) 50 ML IVPB SCH (08:23)
[2018-11-26] MEDS ORDERED: RIVAROXABAN 10 MG TABLET PO SCH (09:00)
--- NOTE | 2018-11-26 09:25 | PN ---
Date/Time of Note Date/Time of Note DATE: 11/26/18 TIME: 09:22 Assessment/Plan VTE Prophylaxis Risk score (from Nsg)>0 risk: 6 SCD applied (from Nsg): Yes Pharmacological prophylaxis: rivaroxaban Lines/Catheters IV Catheter Type (from Nrs): [place] Assessment/Plan Assessment/Plan 83 yo woman with CHF and A fib presents in exacerbation with RVR. 1. Atrial fibrillation with RVR; ?Hyperthyroidism -Continue home diltiazem -Continue Xarelto -TSH low, FT4 normal. Subclinical hyperthyroid. 2. Type 2 diabetes with hyperglycemia: No DKA -Insulin while in-house 3. CHF exacerbation, - Resolved, patient appears euvolemic today. - Cardiology following. 4. SIRS with possible sepsis, possibly from lower extremity cellulitis and UTI -IV antibiotic -Follow culture results 5. Presumed acute on CKD -Cr stable. -Renal ultrasound and nephrology consult as needed Dispo: Anticipate discharge home pending urine culture results. Result Diagram: 11/26/18 0457 11/26/18 0457 Subjective 24 Hr Interval Summary Free Text/Dictation No acute overnight events. Heart rate still elevated to mid 110s-120s on telemetry. Still A fib with frequent dropped beats. Patient lying comfortably flat in bed off oxygen. Exam/Review of Systems Exam Vitals Vital Signs Date Temp Pulse Resp B/P (MAP) Pulse Ox O2 O2 Flow FiO2 Time Delivery Rate 11/26/18 Nasal 2.0 08:29 Cannula 11/26/18 97.7 80 19 144/65 97 07:25 (91) Intake and Output 11/25/18 11/25/18 11/26/18 1515:00 23:00 07:00 IntakeIntake Total 50 ml 720 ml 240 ml BalanceBalance 50 ml 720 ml 240 ml Exam Constitutional: Obese elderly woman lying flat in bed, breathing comfortably. Head: normocephalic, atraumatic Eyes: PERRL Respiratory: Clear to auscultation throughout. Occasional wheezes. Cardiovascular: irregular rhythm, normal rate, no murmurs. Gastrointestinal: soft, nontender, nondistended. Extremities: Mild edema. Skin: Her rash on admission appears to have resolved. Had recent L upper arm excisional biopsy, the site is clean appearing. Results Results 24hrs Laboratory Tests Test 11/25/18 11:57 11/25/18 17:13 11/25/18 20:09 11/26/18 01:51 Bedside Glucose 189 85 167 123 Test 11/26/18 04:57 11/26/18 07:29 White Blood Count 11.9 #H Red Blood Count 4.26 Hemoglobin 12.2 Hematocrit 38.3 Mean Corpuscular Volume 89.9 Mean Corpuscular 28.6 L Hemoglobin Mean Corpuscular 31.9 L Hemoglobin Concent Red Cell Distribution 16.1 H Width Platelet Count 138 L Mean Platelet Volume 11.7 H Immature Granulocytes % 10.300 H Neutrophils % Segmented Neutrophils 66 % (Manual) Band Neutrophils % 8 H (Manual) Lymphocytes % Lymphocytes % (Manual) 8 L Reactive Lymphocytes 3 H % (Manual) Monocytes % Monocytes % (Manual) 3 Eosinophils % Eosinophils % (Manual) 3 Basophils % Metamyelocytes % 2 H (manual) Myelocytes % (Manual) 7 H Nucleated Red Blood 0.0 Cells % Immature Granulocytes # 1.220 H Neutrophils # Neutrophils # (Manual) 8.0 H Band Neutrophils # 0.9 H Lymphocytes (Manual) 0.9 Lymphocytes # Reactive Lymphocytes # 0.3 H Monocytes # Monocytes # (Manual) 0.3 Eosinophils # Basophils # Metamyelocytes # 0.2 H Myelocytes # 0.8 H Nucleated Red Blood Cells # Platelet Estimate NORMAL Giant Platelets 1 H Polychromasia 3+ Poikilocytosis 1+ Anisocytosis 1+ Macrocytosis 1+ Sodium Level 141 Potassium Level 3.3 L Chloride Level 104 Carbon Dioxide Level 31 Anion Gap 6 Blood Urea Nitrogen 54 H Creatinine 1.45 H Est Glomerular Filtrat Rate mL/min Glucose Level 135 # Calcium Level 10.7 H Phosphorus Level 2.9 Magnesium Level 1.6 L Bedside Glucose 139 Medications Medication Current Medications IV Flush (NS 3 ml) 3 ml PER PROTOCOL IV ; Start 11/25/18 at 04:00 Ondansetron HCl (Zofran Inj) 4 mg Q6H PRN IV NAUSEA/VOMITING; Start 11/25/18 at 04:00 Nitroglycerin (Nitroglycerin (Sl Tab) 0.4 Mg) 1 tab Q5M PRN SL .CHEST PAIN; Start 11/25/18 at 04:00 Acetaminophen (Tylenol Tab) 650 mg Q6H PRN PO .PAIN 1-3 OR TEMP; Start 11/25/18 at 04:00 Diagnostic Test (Pha) (Accu-Chek) 1 ea 02 XX Last administered on 11/26/18at 02:21; Admin Dose 1 EA; Start 11/26/18 at 02:00 Insulin Glargine (Lantus) 14 units DAILY@2000 SC Last administered on 11/25/18 20:26; Admin Dose 14 UNITS; Start 11/25/18 at 20:00 Insulin Aspart (Novolog Insulin Pen) 6 unit WITH MEALS SC Last administered on 11/26/18 07:30; Admin Dose 6 UNIT; Start 11/25/18 at 08:00 Insulin Aspart (Novolog Insulin Pen) NOVOLOG *MODERATE* ALGORITHM WITH MEALS BEDTIME SC Last administered on 11/25/18 12:03; Admin Dose 4 UNIT; Start 11/25/18 at 08:00 Aspirin (Halfprin) 81 mg DAILY PO Last administered on 11/26/18 08:23; Admin Dose 81 MG; Start 11/25/18 at 09:00 Furosemide (Lasix) 20 mg BID DIURETICS PO Last administered on 11/26/18 05:00; Admin Dose 20 MG; Start 11/25/18 at 06:00 Metformin HCl (Glucophage) 500 mg BID PO Last administered on 11/26/18 07:30; Admin Dose 500 MG; Start 11/25/18 at 09:00 Miscellaneous Information 1 ea NOTE XX ; Start 11/25/18 at 04:30 Glucose (Glutose) 15 gm Q15M PRN PO DECREASED GLUCOSE; Start 11/25/18 at 04:30 Glucose (Glutose) 22.5 gm Q15M PRN PO DECREASED GLUCOSE; Start 11/25/18 at 04:30 Dextrose (D50w Syringe) 25 ml Q15M PRN IV DECREASED GLUCOSE; Start 11/25/18 at 04:30 Dextrose (D50w Syringe) 50 ml Q15M PRN IV DECREASED GLUCOSE; Start 11/25/18 at 04:30 Glucagon (Glucagen) 1 mg Q15M PRN IM DECREASED GLUCOSE; Start 11/25/18 at 04:30 Glucose (Glutose) 15 gm Q15M PRN BUCCAL DECREASED GLUCOSE; Start 11/25/18 at 04 :30 Ceftriaxone Sodium 50 ml @ 100 mls/hr DAILY IVPB Last administered on 11/26/18 08:23; Admin Dose 100 MLS/HR; Start 11/25/18 at 09:00 Diltiazem HCl (Cardizem Cd) 240 mg QAM PO Last administered on 11/26/18at 08:23; Admin Dose 240 MG; Start 11/25/18 at 08:00 Rivaroxaban (Xarelto) 15 mg WITH DINNER PO Last administered on 11/25/18at 17:19; Admin Dose 15 MG; Start 11/25/18 at 18:00 Magnesium Sulfate 50 ml @ 25 mls/hr ONCE ONCE IVPB ; Start 11/26/18 at 09:30; Stop 11/26/18 at 11:29; Status UNV Potassium Chloride (Potassium Chloride Pwd/Soln) 40 meq ONCE ONCE PO ; Start 11/26/18 at 09:30; Stop 11/26/18 at 09:31; Status UNV NILAM POST MD Nov 26, 2018 09:25
[2018-11-26] MEDS ORDERED: MAGNESIUM SULFATE 2 GM/50 ML 50 ML IVPB ONE (09:30)
[2018-11-26] MEDS ORDERED: POTASSIUM CHLORIDE 20 MEQ POWDER FOR ORAL SOLN PO ONE (09:30)
--- NOTE | 2018-11-26 10:51 | CONS ---
Consultation Date/Type/Reason Admit Date/Time Nov 25, 2018 at 00:34 Initial Consult Date Type of Consult Cardiology Date/Time of Note DATE: 11/26/18 TIME: 10:48 24 HR Interval Summary Free Text/Dictation Assessment/Plan (Daily) Afib Mild CHF exacerbation - Normal EF by echo SIRS -continue rate control -on xarelto - -on PO lasix appears euvolemic Constitutional: no complaints, improved, chills, diaphoresis, disoriented, febrile, poor po, requiring IVF, requiring O2, other Exam/Review of Systems Vital Signs Vitals Vital Signs Date Temp Pulse Resp B/P (MAP) Pulse Ox O2 O2 Flow FiO2 Time Delivery Rate 11/26/18 Nasal 2.0 08:29 Cannula 11/26/18 97.7 80 19 144/65 97 07:25 (91) Intake and Output 11/25/18 11/25/18 11/26/18 1515:00 23:00 07:00 IntakeIntake Total 50 ml 720 ml 240 ml BalanceBalance 50 ml 720 ml 240 ml Exam Constitutional: alert Psych: other (abdominal pain) Respiratory: diminished breath sounds Cardiovascular: irregular rhythm Gastrointestinal: soft Extremities: No edema Labs Result Diagram: 11/26/18 0457 11/26/18 0457 Results 24hrs Laboratory Tests Test 11/25/18 11:57 11/25/18 17:13 11/25/18 20:09 11/26/18 01:51 Bedside Glucose 189 85 167 123 Test 11/26/18 04:57 11/26/18 07:29 White Blood Count 11.9 #H Red Blood Count 4.26 Hemoglobin 12.2 Hematocrit 38.3 Mean Corpuscular Volume 89.9 Mean Corpuscular 28.6 L Hemoglobin Mean Corpuscular 31.9 L Hemoglobin Concent Red Cell Distribution 16.1 H Width Platelet Count 138 L Mean Platelet Volume 11.7 H Immature Granulocytes % 10.300 H Neutrophils % Segmented Neutrophils 66 % (Manual) Band Neutrophils % 8 H (Manual) Lymphocytes % Lymphocytes % (Manual) 8 L Reactive Lymphocytes 3 H % (Manual) Monocytes % Monocytes % (Manual) 3 Eosinophils % Eosinophils % (Manual) 3 Basophils % Metamyelocytes % 2 H (manual) Myelocytes % (Manual) 7 H Nucleated Red Blood 0.0 Cells % Immature Granulocytes # 1.220 H Neutrophils # Neutrophils # (Manual) 8.0 H Band Neutrophils # 0.9 H Lymphocytes (Manual) 0.9 Lymphocytes # Reactive Lymphocytes # 0.3 H Monocytes # Monocytes # (Manual) 0.3 Eosinophils # Basophils # Metamyelocytes # 0.2 H Myelocytes # 0.8 H Nucleated Red Blood Cells # Platelet Estimate NORMAL Giant Platelets 1 H Polychromasia 3+ Poikilocytosis 1+ Anisocytosis 1+ Macrocytosis 1+ Sodium Level 141 Potassium Level 3.3 L Chloride Level 104 Carbon Dioxide Level 31 Anion Gap 6 Blood Urea Nitrogen 54 H Creatinine 1.45 H Est Glomerular Filtrat Rate mL/min Glucose Level 135 # Calcium Level 10.7 H Phosphorus Level 2.9 Magnesium Level 1.6 L Bedside Glucose 139 Medications Medications Current Medications IV Flush (NS 3 ml) 3 ml PER PROTOCOL IV ; Start 11/25/18 at 04:00 Ondansetron HCl (Zofran Inj) 4 mg Q6H PRN IV NAUSEA/VOMITING; Start 11/25/18 at 04:00 Nitroglycerin (Nitroglycerin (Sl Tab) 0.4 Mg) 1 tab Q5M PRN SL .CHEST PAIN; Start 11/25/18 at 04:00 Acetaminophen (Tylenol Tab) 650 mg Q6H PRN PO .PAIN 1-3 OR TEMP; Start 11/25/18 at 04:00 Diagnostic Test (Pha) (Accu-Chek) 1 ea 02 XX Last administered on 11/26/18at 02:21; Admin Dose 1 EA; Start 11/26/18 at 02:00 Insulin Glargine (Lantus) 14 units DAILY@2000 SC Last administered on 11/25/18at 20:26; Admin Dose 14 UNITS; Start 11/25/18 at 20:00 Insulin Aspart (Novolog Insulin Pen) 6 unit WITH MEALS SC Last administered on 11/26/18at 07:30; Admin Dose 6 UNIT; Start 11/25/18 at 08:00 Insulin Aspart (Novolog Insulin Pen) NOVOLOG *MODERATE* ALGORITHM WITH MEALS BEDTIME SC Last administered on 11/25/18at 12:03; Admin Dose 4 UNIT; Start 11/25/18 at 08:00 Aspirin (Halfprin) 81 mg DAILY PO Last administered on 11/26/18at 08:23; Admin Dose 81 MG; Start 11/25/18 at 09:00 Furosemide (Lasix) 20 mg BID DIURETICS PO Last administered on 11/26/18at 05:00; Admin Dose 20 MG; Start 11/25/18 at 06:00 Metformin HCl (Glucophage) 500 mg BID PO Last administered on 11/26/18at 07:30; Admin Dose 500 MG; Start 11/25/18 at 09:00 Miscellaneous Information 1 ea NOTE XX ; Start 11/25/18 at 04:30 Glucose (Glutose) 15 gm Q15M PRN PO DECREASED GLUCOSE; Start 11/25/18 at 04:30 Glucose (Glutose) 22.5 gm Q15M PRN PO DECREASED GLUCOSE; Start 11/25/18 at 04:30 Dextrose (D50w Syringe) 25 ml Q15M PRN IV DECREASED GLUCOSE; Start 11/25/18 at 04:30 Dextrose (D50w Syringe) 50 ml Q15M PRN IV DECREASED GLUCOSE; Start 11/25/18 at 04:30 Glucagon (Glucagen) 1 mg Q15M PRN IM DECREASED GLUCOSE; Start 11/25/18 at 04:30 Glucose (Glutose) 15 gm Q15M PRN BUCCAL DECREASED GLUCOSE; Start 11/25/18 at 04:30 Ceftriaxone Sodium 50 ml @ 100 mls/hr DAILY IVPB Last administered on 11/26/18at 08:23; Admin Dose 100 MLS/HR; Start 11/25/18 at 09:00 Diltiazem HCl (Cardizem Cd) 240 mg QAM PO Last administered on 11/26/18at 08:23; Admin Dose 240 MG; Start 11/25/18 at 08:00 Rivaroxaban (Xarelto) 15 mg WITH DINNER PO Last administered on 11/25/18at 17:19; Admin Dose 15 MG; Start 11/25/18 at 18:00 Magnesium Sulfate 50 ml @ 25 mls/hr ONCE ONCE IVPB Last administered on 11/26/18at 09:37; Admin Dose 25 MLS/HR; Start 11/26/18 at 09:30; Stop 11/26/18 at 11:29 GARY VALDEZ MD Nov 26, 2018 10:51
[2018-11-26 12:00] VITALS: BP 139/65; PULSE 72; RESP 20
[2018-11-26 15:39] VITALS: BP 133/80; PULSE 67; RESP 22
[2018-11-26] MEDS: RIVAROXABAN 15 MG TABLET PO SCH (17:07)
[2018-11-26 19:32] VITALS: BP 154/65; PULSE 63; RESP 23
[2018-11-26] MEDS: INSULIN GLARGINE [LANTus] (100 UNITS/ML) SYG SC SCH (20:11)
[2018-11-26 23:37] VITALS: BP 141/69; PULSE 69; RESP 21
[2018-11-27] MEDS: ACCU-CHEK XX SCH (02:00)
[2018-11-27 03:37] VITALS: BP 124/75; PULSE 68; RESP 19
[2018-11-27] MEDS: FUROSEMIDE 20 MG TAB PO SCH (04:47)
[2018-11-27] MEDS: INSULIN ASPART [NOVOLOG] 3 ML PEN SC SCH ×4 (07:50→11:31)
[2018-11-27 08:17] VITALS: BP 125/60; PULSE 80; RESP 24
[2018-11-27] MEDS: metFORMIN 500 MG TAB PO SCH (08:25)
[2018-11-27] MEDS: ASPIRIN (EC) 81 MG TAB PO SCH (08:25)
[2018-11-27] MEDS: CEFTRIAXONE 1 GM/50 ML (PMX) 50 ML IVPB SCH (08:25)
[2018-11-27] MEDS: DILTIAZEM (CD) 240 MG CAP PO SCH (08:26)
--- NOTE | 2018-11-27 10:56 | PDOCDIS ---
Discharge Instructions DIAGNOSIS Discharge Diagnosis CHF exacerbation UTI CONDITION [id number] Patient Condition: [id number] Good HOME CARE INSTRUCTIONS: [id number] Diet Instructions: [id number] Reduced Sodium ACTIVITY: [id number] Activity Restrictions: [id number] No Restrictions FOLLOW UP/APPOINTMENTS Follow-up Plan 1. Take all medications as prescribed, including 7 days of levofloxacin. This was sent to the [email or web address]. 2. See your primary care doctor in 1-2 weeks. 3. Return to the emergency room for worsening shortness of breath at rest. NILAM POST MD Nov 27, 2018 10:56
[2018-11-27 12:04] VITALS: BP 113/57; PULSE 77; RESP 20
--- NOTE | 2018-11-27 15:36 | DS ---
Date/Time of Note Date/Time of Note DATE: 11/27/18 TIME: 15:34 Discharge Summary Admission/Discharge Info Admit Date/Time Nov 25, 2018 at 00:34 Discharge Date/Time Nov 27, 2018 at 15:00 Discharge Diagnosis CHF exacerbation UTI Patient Condition: Good Hx of Present Illness Patient is an 83-year-old female with a history of type 2 diabetes, atrial fi brillation, CHF who presents the ER complaining of shortness of breath, lower extremity edema and palpitations. There is also redness in bilateral lower extremity. Patient was recently hospitalized at [facility] and there was just discharged 2 days ago per ER. It seems like she was hospitalized for chest pain. Patient was found to be in rapid A-fib. Lab shows glucose of 427, creatinine 1.57, WBC 18,000, BNP almost 9000. Hospital Course She had leukocytosis and leuk esterase in the urine so there was concern for UTI. She was given ceftriaxone with improvement of symptoms, and will be discharged to complete a course of oral levofloxacin. Urine culture appears contaminated with sonja and mixed gram positive organisms. Her home medications were resumed and her pulse returned to baseline. She got only mild diuresis before restarting on her home lasix dose and her CHF symptoms improved quickly. I wrote a note clearing her for international travel. Home Meds Active Scripts Levofloxacin* (Levofloxacin*) 750 Mg Tablet, 750 MG PO DAILY, #7 TAB Prov:NILAM POST MD 11/27/18 Reported Medications Furosemide* (Furosemide*) 20 Mg Tablet, 20 MG PO BID, #30 TAB 11/25/18 Diltiazem Hcl (DILTIAZEM 24HR CD) 240 Mg Cap.er.24h, 240 MG PO QAM for 30 Days, #30 11/25/18 Rivaroxaban* (Xarelto*) 10 Mg Tablet, 10 MG PO QAM for 30 Days, #30 11/25/18 Aspirin* (Aspirin* EC) 81 Mg Tablet.dr, 81 MG PO DAILY for 30 Days, #30 11/25/18 Metformin* (Glucophage*) 500 Mg Tab, 500 MG PO BID for 30 Days, #60 11/25/18 Follow-up Plan 1. Take all medications as prescribed, including 7 days of levofloxacin. This was sent to the [email or web address]. 2. See your primary care doctor in 1-2 weeks. 3. Return to the emergency room for worsening shortness of breath at rest. Primary Care Provider Not On Staff Doctor Time spent on discharge: > 30 minutes Pending Labs Laboratory Tests Test 11/26/18 17:05 11/26/18 20:03 11/27/18 01:52 11/27/18 07:42 Bedside 273 232 82 146 Glucose mg/dL (70-220) mg/dL (70-220) mg/dL (70-220) mg/dL (70-220) Test 11/27/18 09:51 11/27/18 11:25 White Blood 12.5 Count 10^3/ul (4.8-10 .8) Red Blood 4.42 Count 10^6/ul (4.20-5 .40) Hemoglobin 12.7 g/dl (12.0-16.0 ) Hematocrit 40.2 % (37.0-47.0) Mean 91.0 Corpuscular fl (82.0-101.0) Volume Mean 28.7 Corpuscular pg (29.0-33.0) Hemoglobin Mean 31.6 Corpuscular g/dl (32.0-37.0 Hemoglobin Conc ) ent Red Cell 16.4 Distribution % (11.5-14.5) Width Platelet Count 148 10^3/UL (140-41 5) Mean Platelet 12.0 Volume fl (7.4-10.4) Immature 6.800 Granulocytes % % (0.001-0.429) Neutrophils % 73.8 % (39.0-77.0) Lymphocytes % 14.8 % (15.0-51.0) Monocytes % 3.3 % (0.0-11.0) Eosinophils % 1.0 % (0.0-7.0) Basophils % 0.3 % (0.0-2.0) Nucleated Red 0.2 Blood Cells % /100WBC (0.0-0. 0) Immature 0.850 Granulocytes # 10^3/ul (0.0-0. 031) Neutrophils # 9.2 10^3/ul (1.6-7. 5) Lymphocytes # 1.9 10^3/ul (0.8-2. 9) Monocytes # 0.4 10^3/ul (0.3-0. 9) Eosinophils # 0.1 10^3/ul (0.0-0. 5) Basophils # 0.0 10^3/ul (0.0-0. 1) Nucleated Red 0.0 Blood Cells # 10^3/ul (0.0-0. 0) Sodium Level 142 mmol/L (135-144 ) Potassium 4.2 Level mmol/L (3.5-5.1 ) Chloride Level 103 mmol/L (97-110) Carbon Dioxide 30 Level mmol/L (21-31) Anion Gap 9 (5-13) Blood Urea 58 mg/dl (7-20) Nitrogen Creatinine 1.63 mg/dl (0.44-1.0 0) Est Glomerular mL/min (>60) Filtrat Rate mL/min Glucose Level 151 mg/dl (70-220) Calcium Level 10.4 mg/dl (8.4-10.2 ) Bedside 117 Glucose mg/dL (70-220) NILAM POST MD Nov 27, 2018 15:36
--- NOTE | 2018-11-27 18:49 | CONS ---
Assessment/Plan Cardiology NYHA: II Heart Failure Type: Acute on Chronic Heart Failure Type: Diastolic Assessment/Plan Hospital Course (Demo Recall) Acute decompensated diastolic congestive heart failure Atrial fibrillation Hypertension Preserved left ventricular ejection fraction Patient appears near euvolemic, titrate diuretics as needed Currently on Cardizem, if heart rate still not well controlled, increase dose Continue anticoagulation as tolerated Consultation Date/Type/Reason Admit Date/Time Nov 25, 2018 at 00:34 Initial Consult Date Type of Consult Cardiology Date/Time of Note DATE: 11/27/18 TIME: 18:47 24 HR Interval Summary Free Text/Dictation no sob,cp Exam/Review of Systems Vital Signs Vitals Vital Signs Date Temp Pulse Resp B/P (MAP) Pulse Ox O2 O2 Flow FiO2 Time Delivery Rate 11/27/18 97.4 77 20 113/57 98 Nasal 12:04 (75) Cannula 11/27/18 2.0 08:00 Intake and Output 11/26/18 11/26/18 11/27/18 1414:59 22:59 06:59 IntakeIntake Total 880 ml 120 ml 340 ml BalanceBalance 880 ml 120 ml 340 ml Exam Constitutional: alert, oriented (nad) Head: normocephalic Respiratory: other (course bs, no wheeze) Cardiovascular: irregular rhythm (s1s2) Gastrointestinal: soft, non-tender, bowel sounds Extremities: edema (tr) Labs Result Diagram: 11/27/18 0951 11/27/18 0951 Results 24hrs Laboratory Tests Test 11/26/18 20:03 11/27/18 01:52 11/27/18 07:42 11/27/18 09:51 Bedside Glucose 232 H 82 146 White Blood Count 12.5 H Red Blood Count 4.42 Hemoglobin 12.7 Hematocrit 40.2 Mean Corpuscular Volume 91.0 Mean Corpuscular 28.7 L Hemoglobin Mean Corpuscular 31.6 L Hemoglobin Concent Red Cell Distribution 16.4 H Width Platelet Count 148 Mean Platelet Volume 12.0 H Immature Granulocytes % 6.800 H Neutrophils % 73.8 Lymphocytes % 14.8 L Monocytes % 3.3 Eosinophils % 1.0 Basophils % 0.3 Nucleated Red Blood 0.2 H Cells % Immature Granulocytes # 0.850 H Neutrophils # 9.2 H Lymphocytes # 1.9 Monocytes # 0.4 Eosinophils # 0.1 Basophils # 0.0 Nucleated Red Blood 0.0 Cells # Sodium Level 142 Potassium Level 4.2 Chloride Level 103 Carbon Dioxide Level 30 Anion Gap 9 Blood Urea Nitrogen 58 H Creatinine 1.63 H Est Glomerular Filtrat Rate mL/min Glucose Level 151 Calcium Level 10.4 H Test 11/27/18 11:25 Bedside Glucose 117 Edmar Kaiser DO Nov 27, 2018 18:49
== END 2018-11-27 15:00 | disposition home or self-care (01) | DRG 291 ==
LOC: E/R 19:59 → 6WM 11-25 00:34
PROVIDERS: ADMIT Internal Medicine; ATTEND Internal Medicine
DX: I13.0 Hypertensive heart and chronic kidney disease with heart failure and stage 1 through stage 4 chronic kidney disease, or unspecified chronic kidney disease (principal); I50.33 Acute on chronic diastolic (congestive) heart failure; N39.0 Urinary tract infection, site not specified; N17.9 Acute kidney failure, unspecified; I48.91 Unspecified atrial fibrillation; E11.65 Type 2 diabetes mellitus with hyperglycemia; E05.90 Thyrotoxicosis, unspecified without thyrotoxic crisis or storm; N18.9 Chronic kidney disease, unspecified
CPT/HCPCS: 36415; 71045; 80048; 80053; 80061; 81001; 81003; 82436; 82550; 82553; 82962; 83036; 83735; 83880; 84100; 84133; 84300; 84439; 84443; 84484; 85025; 87081; 87086; 93005; 93306; 96372; 96374; J0696; J1815; J1940; J3475